=== PATIENT | female | born 1975 | race Two or more races ===

== ENCOUNTER 2025-02-03 15:04 | Emergency (ER) | payer BC ==
[~2025-02-03] VITALS: Ht 157.5 cm; Wt 49.4 kg
[2025-02-03 15:48] VITALS: BP 128/78; O2SAT 99
== END 2025-02-03 16:35 | disposition short-term general hospital (02) ==
LOC: ER 15:14
DX: S01.511A Laceration without foreign body of lip, initial encounter (principal); R10.9 Unspecified abdominal pain; R11.0 Nausea; R41.82 Altered mental status, unspecified; X58.XXXA Exposure to other specified factors, initial encounter; Y93.89 Activity, other specified; Y92.89 Other specified places as the place of occurrence of the external cause; Y99.8 Other external cause status
CPT/HCPCS: A4606; A4663